=== PATIENT | male | born 1940 | race Caucasian/White ===

== ENCOUNTER → 2017-05-14 | Outpatient (REF) | payer MEDICARE ==
[2017-05-14 14:30] LABS: BASO # 0.1 K/mm3 (0.0-0.2); BASO % 1.6 % (0.0-1.0); EOS # 1.3 K/mm3 (0.0-0.50); EOS % 15.5 % (0.0-3.0); LARGE UNSTAINED CELL # 0.2 K/mm3 (0.0-0.4); LARGE UNSTAINED CELL % 2.2 % (0.0-4.0); LYMPH # 1.3 K/mm3 (1.5-4.5); LYMPH % 13.1 % (24.0-44.0); MEAN CORPUSCULAR HEMOGLOBIN 30.3 pg (27.0-33.0); MEAN CORPUSCULAR HGB CONC 33.1 g/dl (32.0-36.5); MEAN CORPUSCULAR VOLUME 91.7 fl (80.0-96.0); MONO # 0.5 K/mm3 (0.0-0.8); MONO % 5.8 % (0.0-5.0); NEUTROPHILS # 5.3 K/mm3 (1.8-7.7); NEUTROPHILS % 61.8 % (36.0-66.0); PLATELET COUNT, AUTOMATED 293 k/mm3 (150-450); RED CELL DISTRIBUTION WIDTH 12.7 % (11.5-14.5); WHITE BLOOD COUNT 8.6 K/mm3 (4.0-10.0)
[2017-05-14 15:17] LABS: PERCENT SATURATION 30.1 % (19.7-37.4)
== END ==
LOC: M LABDRAW1 12:22
PROVIDERS: ATTEND Orthopaedic Surgery
DX: Z01.818 Encounter for other preprocedural examination (principal); M25.559 Pain in unspecified hip; D64.9 Anemia, unspecified; M16.9 Osteoarthritis of hip, unspecified

== ENCOUNTER → 2018-05-08 | Outpatient (REF) | payer MEDICARE | LOC: M LAB REF 17:13 | DX: J47.9 Bronchiectasis, uncomplicated (principal) ==

== ENCOUNTER → 2018-05-08 | Outpatient (CLI) | payer MEDICARE | LOC: M SMT 14:31 | DX: J47.9 Bronchiectasis, uncomplicated (principal); J98.4 Other disorders of lung | CPT/HCPCS: 87205 ==

== ENCOUNTER → 2018-09-25 | Outpatient (CLI) | payer MEDICARE | LOC: M SMT 10:34 | DX: J47.1 Bronchiectasis with (acute) exacerbation (principal); J84.10 Pulmonary fibrosis, unspecified | CPT/HCPCS: 87186 ==

== ENCOUNTER → 2019-10-13 | Outpatient (REF) | payer MEDICARE | LOC: M LAB REF 16:44 | PROVIDERS: ATTEND Physician Assistant | DX: J44.9 Chronic obstructive pulmonary disease, unspecified (principal); J47.9 Bronchiectasis, uncomplicated ==

== ENCOUNTER → 2021-02-14 | Outpatient (REF) | payer MEDICARE ==
[2021-02-14 14:02] LABS: APPEARANCE, URINE CLEAR (CLEAR); BACTERIA, URINE AUTO NEGATIVE (NEGATIVE); BILIRUBIN, URINE AUTO NEGATIVE (NEGATIVE); BLOOD, URINE BLOOD 1+ (NEGATIVE); COLOR, URINE YELLOW (YELLOW); GLUCOSE, URINE (UA) AUTO NEGATIVE (NEGATIVE); KETONE, URINE AUTO NEGATIVE (NEGATIVE); LEUKOCYTE ESTERASE, URINE AUTO NEGATIVE (NEGATIVE); MUCUS, URINE SMALL (NEGATIVE); NITRITE, URINE AUTO NEGATIVE (NEGATIVE); PROTEIN, URINE AUTO NEGATIVE (NEGATIVE); RBC, URINE AUTO 15 /HPF (0-3); SQUAMOUS EPITHELIAL CELL UR AU 0 /HPF (0-6); UROBILINOGEN, URINE AUTO 0.2 mg/dL (0.0-2.0); WBC, URINE AUTO 3 /HPF (0-3)
== END ==
LOC: M SMT 13:25
PROVIDERS: ATTEND Nurse Practitioner Women's Health
DX: R31.29 Other microscopic hematuria (principal)
CPT/HCPCS: 81001; 87086; G0463

== ENCOUNTER → 2021-04-06 | Outpatient (CLI) | payer MEDICARE ==
[~2021-04-06] MED LIST: ATOR1TAB19; BISO5TAB2; BREO1INH3; FLUT11IN; MUCI600T31 PO; SPIR1CAP; TAMS1CAP17
== END ==
LOC: M LABSMTC 10:02
PROVIDERS: ATTEND Anesthesiology
DX: Z01.812 Encounter for preprocedural laboratory examination (principal); Z20.822 Contact with and (suspected) exposure to COVID-19

== ENCOUNTER 2021-04-11 05:59 | Day surgery (SDC) | payer MEDICARE ==
[~2021-04-11] VITALS: Ht 180.3 cm; Wt 82.3 kg
[2021-04-11] MEDS ORDERED: UNRESOLVED CLARIFICATION ENTRY XX SCH (06:00)
[2021-04-11] MEDS ORDERED: LR 1,000 ML IV ONE (06:00)
[2021-04-11] MEDS ORDERED: CONRAY-60 60% 50ML VIAL (Q9961) As Ordered ONE (06:52)
[2021-04-11] MEDS ORDERED: ALBUTEROL SULFATE 2.5 MG/0.5 ML INH NEB SOLN INH ONE (07:20)
[2021-04-11] MEDS ORDERED: CIPROFLOXACIN 400 MG in IV 1 EA IV ONE (07:20)
[2021-04-11] MEDS ORDERED: dexameTHASONE 4 MG/ML 1ML VIAL (J1100 PER 1MG) As Ordered ONE (07:21)
[2021-04-11] MEDS ORDERED: propofoL 200 MG/20 ML VIAL As Ordered ONE (07:21)
[2021-04-11] MEDS ORDERED: ONDANSETRON 4MG/2ML VIAL As Ordered ONE (07:21)
[2021-04-11] MEDS ORDERED: fentaNYL 100 MCG/2 ML INJECTION (J3010) As Ordered ONE (07:21)
[2021-04-11] MEDS ORDERED: LIDOCAINE 2% 100MG/5ML SDV (FOR ANES.) As Ordered ONE (07:21)
[2021-04-11] MEDS ORDERED: ROCURONIUM BROMIDE 50 MG/5 ML VIAL As Ordered ONE (07:37)
[2021-04-11] MEDS ORDERED: ePHEDrine SULFATE 25 MG/5 ML(5MG/ML) SYRINGE As Ordered ONE (07:52)
[2021-04-11] MEDS ORDERED: PHENYLephrine 500MCG 5ML (100MCG/ML) SYRINGE As Ordered ONE (07:59)
[2021-04-11] MEDS ORDERED: ACETAMINOPHEN 1000MG 100ML IV BTL (OFIRMEV) (J0131 PER 10MG) As Ordered ONE (08:19)
[2021-04-11] MEDS ORDERED: SUGAMMADEX SODIUM 500 MG/5 ML VIAL (BRIDION) As Ordered ONE (08:20)
--- NOTE | 2021-04-11 09:10 | ROOPDOC ---
[facility] Report Of Operation Report of Operation DATE OF PROCEDURE: 04/11/21 PREPROCEDURE DIAGNOSES: Left renal calculus POSTPROCEDURE DIAGNOSES: Left renal calculus with ureteral strictures PROCEDURE: Cystoscopy, left retrograde pyelogram, ureteral dilation, ureteroscopy, stent insertion, x-ray interpretation and fluoroscopy SURGEON: Denis Vargas MD [employer]ER OPERATIONS INSPECTOR: None ANESTHESIA: Gen. ESTIMATED BLOOD LOSS: Approximately less than 10 mL. COMPLICATIONS: None REMARKS: Patient was brought to the operating for treatment of an 8 mm renal pelvic stone that causes periodic back pain. 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 Timeout was performed. A #22 Thai cystoscope was inserted into the meatus and advanced under direct vision of a 30 lens to the bladder. The prostate was mildly obstructive with increased vascularity from prior radiation therapy. The bladder also had radiation changes. Both ureteral orifices were identified and were contracted from radiation changes. There were no other mucosal abnormalities. A Pollack catheter was attempted to be inserted into the orifice for a retrograde pyelogram but because of the narrowness of the channel could not be performed. A wire guide was then passed through the catheter and with some manip ulation was able to be inserted into the ureteral orifice followed by the catheter. The wire was then removed and a retrograde pyelogram was performed. This showed the patient had a renal pelvic defect and a very narrow ureter up to the renal pelvis. The wire guide was then passed through the catheter up to the renal pelvis and left in place as the catheter was removed. The Pollack catheter was then used to insert a second working wire. A tunnel dilator was attempted to be passed without success because of the narrow channel. A balloon dilator was then used to dilate the distal ureter and ureteral orifice to 15 giselle pressure for 3 minutes. The balloon was then deflated and a tunnel dilator was able to be inserted only into the distal ureter. The flexible cystoscope was then passed over the working wire. The ureteral channel was very narrow and it was extremely difficult to advance the scope. The decision was therefore made to insert a ureteral stent to gently dilate the ureter and return in 2 weeks for ureteroscopic laser lithotripsy. A cystoscope was then backloaded over the safety wire and an 8 Thai double-J stent was passed. It curled well in the renal pelvis and in the bladder when the wire was removed. The bladder was then drained, cystoscope was removed and the patient was awakened and sent to recovery area in stable condition having tolerated the procedure well. A digital rectal exam showed a flat benign prostate. Fluoroscopy was used throughout the case and interpreted throughout the case to pass the instruments and dilate the ureter. EDNIS VARGAS MD April 11, 2021 09:10
[2021-04-11] MEDS ORDERED: ONDANSETRON 4MG/2ML VIAL IV PRN (09:25)
[2021-04-11] MEDS ORDERED: fentaNYL 100 MCG/2 ML INJECTION (J3010) IV PRN (09:25)
[2021-04-11] MEDS ORDERED: NORCO, ANEXSIA 5/325MG TABLET (HYDROcodone/ACETAMINOPHEN) PO PRN (09:25)
[2021-04-11] MEDS ORDERED: LR 1,000 ML IV SCH (09:25)
--- NOTE | 2021-04-11 09:26 | REP ---
INDICATION: POSSIBLE LEFT STENT PLACEMENT. COMPARISON: None. TECHNIQUE: Single C-arm view abdomen. FINDINGS: Only the proximal aspect of a left ureteral stent is visualized within the proximal left ureter. The left pelvocaliceal system is partially opacified with contrast. The proximal end of the ureteral stent is within the left renal pelvis. IMPRESSION: 45 seconds fluoroscopy time utilized. <Electronically signed by Jerome Ku > 04/11/21 [id number]
[2021-04-11] MEDS ORDERED: IBUPROFEN 600MG TAB PO PRN (09:35)
[2021-04-11 10:30] VITALS: BP 118/54
== END 2021-04-11 10:40 | disposition home or self-care (01) ==
LOC: M SDC 05:59
PROVIDERS: ATTEND Urology
DX: N20.0 Calculus of kidney (principal); N13.2 Hydronephrosis with renal and ureteral calculous obstruction; I10 Essential (primary) hypertension; J44.9 Chronic obstructive pulmonary disease, unspecified; Z79.899 Other long term (current) drug therapy; Z88.0 Allergy status to penicillin; Z92.3 Personal history of irradiation; Z85.118 Personal history of other malignant neoplasm of bronchus and lung; Z85.46 Personal history of malignant neoplasm of prostate; Z99.81 Dependence on supplemental oxygen
CPT/HCPCS: 52332; 52341; 76000; C1769; C1894; C2617; J0131; J0744; J1100; J2370; J2405; J3010; Q9961

== ENCOUNTER → 2021-05-18 | Outpatient (CLI) | payer MEDICARE ==
[~2021-05-18] MED LIST changes: +ECOT81TA5 PO; +VITA200030 PO; +VITMTA PO
== END ==
LOC: M LABSMTC 11:07
PROVIDERS: ATTEND Anesthesiology
DX: Z01.812 Encounter for preprocedural laboratory examination (principal); Z20.822 Contact with and (suspected) exposure to COVID-19

== ENCOUNTER 2021-05-23 10:41 | Day surgery (SDC) | payer MEDICARE ==
[~2021-05-23] VITALS: Ht 177.8 cm; Wt 90.2 kg
[~2021-05-23 10:41] MED LIST changes: +CONRAY-60 60% 50ML VIAL (Q9961) As Ordered ONE; +LR 1,000 ML IV ONE; +LevoFLOXacin IV 500 MG in IV 1 EA IV ONE
[2021-05-23] MEDS ORDERED: propofoL 200 MG/20 ML VIAL As Ordered ONE (10:52)
[2021-05-23] MEDS ORDERED: LIDOCAINE 2% 100MG/5ML SDV (FOR ANES.) As Ordered ONE (10:52)
[2021-05-23] MEDS ORDERED: fentaNYL 100 MCG/2 ML INJECTION (J3010) As Ordered ONE (10:52)
[2021-05-23] MEDS ORDERED: IPRA0.00 IN (11:37)
[2021-05-23] MEDS ORDERED: ONDANSETRON 4MG/2ML VIAL As Ordered ONE (11:50)
[2021-05-23] MEDS ORDERED: PHENYLephrine 500MCG 5ML (100MCG/ML) SYRINGE As Ordered ONE (11:50)
[2021-05-23] MEDS ORDERED: ePHEDrine SULFATE 25 MG/5 ML(5MG/ML) SYRINGE As Ordered ONE (11:50)
[2021-05-23] MEDS ORDERED: dexameTHASONE 4 MG/ML 1ML VIAL (J1100 PER 1MG) As Ordered ONE (11:50)
--- NOTE | 2021-05-23 12:48 | REP ---
INDICATION: CYSTO, LEFT URET, W/ LASER, LEFT STENT. COMPARISON: None. TECHNIQUE: Intraoperative fluoroscopic imaging. FINDINGS: Images demonstrate the patient to be status post left ureteral stent placement. Total fluoroscopic time 1 minutes 21 seconds. IMPRESSION: Status post left ureteral stent placement. <Electronically signed by Sigifredo Barron > 05/23/21 [id number]
[2021-05-23] MEDS ORDERED: CIPR500T39 PO (12:56)
[2021-05-23] MEDS ORDERED: OXYB5TAB10 PO (12:56)
[2021-05-23] MEDS ORDERED: PYRI1TAB5 PO (12:56)
[2021-05-23] MEDS ORDERED: HYDR-3713 PO (12:56)
[2021-05-23] MEDS ORDERED: LR 1,000 ML IV SCH (13:05)
[2021-05-23] MEDS ORDERED: MEPERIDINE INJ 25 MG/ML VIAL (J2175) IV PRN (13:05)
[2021-05-23] MEDS ORDERED: fentaNYL 100 MCG/2 ML INJECTION (J3010) IV PRN (13:05)
[2021-05-23] MEDS ORDERED: oxyCODONE 5MG TAB PO PRN (13:05)
[2021-05-23] MEDS ORDERED: ONDANSETRON 4MG/2ML VIAL IV PRN (13:05)
[2021-05-23] MEDS ORDERED: METOCLOPRAMIDE INJ 10MG/2ML VIAL (J2765 PER 1) IV PRN (13:05)
[2021-05-23 14:15] VITALS: BP 133/59
--- NOTE | 2021-05-24 11:17 | ROOPDOC ---
[facility] Report Of Operation Report of Operation DATE OF PROCEDURE: 05/24/21 PREPROCEDURE DIAGNOSES: [Left renal stone, left ureteral strictures]. POSTPROCEDURE DIAGNOSES: [Same]. PROCEDURE PERFORMED: Cystoscopy, fluoroscopy, retrograde pyelography, balloon dilatation of ureteral strictures, rigid and flexible ureteroscopy, laser lithotripsy, ureteral stent removal/replacement (LEFT SIDE)]. SURGEON: [Marquis Soliz]MD RUCHING MACHINE OPERATOR: [Urology staff], ANESTHESIA: [General]. ESTIMATED BLOOD LOSS: Approximately [2] mL. COMPLICATIONS: [None]. REMARKS: [81-year-old white male. Left renal pelvis stone. Intermittent pain. Initial attempt to deal with the stone was unsuccessful because of ureteral strictures. Urologist was unable to get the ureteroscope into the renal pelvis. Ultimately a stent was placed. The hope was that the ureter would dilate passively. A second surgery was arranged. Informed consent was obtained. Risks were discussed such as infection, bleeding, pain, scarring, injury to the urinary tract, failure of surgery, risks of anesthesia and others.]. FINDINGS: [Several left ureteral strictures, large left renal pelvis stone] SPECIMENS REMOVED: [Old left stent] PROCEDURE NOTE: . DESCRIPTION OF PROCEDURE: [I met with the patient in the preop area before surgery. Informed consent was obtained. Questions were answered. No guarantees were given. Patient was brought to the OR. Surgery was done under antimicrobial coverage. General anesthesia was secured without difficulty. Dorsal lithotomy position. Well padded. Prepping and draping in the usual sterile fashion. A timeout was performed. Rigid cystoscopy was performed. The stent on the left was identified and pulled to the external urethral meatus with a rigid grasper after which a wire was passed through it up into the kidney as seen using fluoroscopy. The stent was removed. With the wire as a safety wire rigid ureteroscopy was performed. I was unable to advance the ureteroscope more than probably a third of the ureter. The ureter was narrow in general and ultimately I met with a stricture. Contrast was injected through the ureteroscope to obtain a retrograde pyelogram. Several ureteral strictures were noted. A 4 cm long balloon was used to dilate the strictures. Such was done over a wire under fluoroscopy. The balloon was inflated several times. After this a second wire was advanced up the ureter into the kidney asa seen using fluoroscopy. I was then able to advance a flexible ureteroscope into the kidney. The renal pelvis and calyces were inspected. The stone in question was found. It was larger than a centimeter. Laser lithotripsy was performed. I took a while to fragment the stone. It was fragmented into many pieces. Once no large fragments were noted I placed a 6 [place] multilength stent using the Seldinger technique. Proper positioning was confirmed. The bladder was emptied and the cystoscope was removed. Patient tolerated everything well and left the room in satisfactory condition. Home on antibiotic, oxybutynin, Pyridium and pain medication. Will undergo imaging to determine success of the surgery. Hopefully no large fragments remain. Ultimately will undergo cystoscopy with stent removal.]. MARQUIS SOLIZ MD May 24, 2021 11:17
== END 2021-05-23 14:15 | disposition home or self-care (01) ==
LOC: M SDC 10:41
PROVIDERS: ATTEND Urology
DX: N20.1 Calculus of ureter (principal); N13.5 Crossing vessel and stricture of ureter without hydronephrosis; I10 Essential (primary) hypertension; J44.9 Chronic obstructive pulmonary disease, unspecified; Z99.81 Dependence on supplemental oxygen; Z92.3 Personal history of irradiation; Z85.118 Personal history of other malignant neoplasm of bronchus and lung; Z85.46 Personal history of malignant neoplasm of prostate; Z79.82 Long term (current) use of aspirin; Z79.899 Other long term (current) drug therapy; Z88.0 Allergy status to penicillin
CPT/HCPCS: 52341; 52356; 74420; C1769; C2617; J1100; J1956; J2370; J2405; J2765; J3010; Q9961

== ENCOUNTER → 2022-02-13 | Outpatient (CLI) | payer MEDICARE ==
[~2022-02-13] MED LIST changes: +BISO1TAB18; -BISO5TAB2; +CIPR500T39 PO; -CONRAY-60 60% 50ML VIAL (Q9961) As Ordered ONE; +HYDR-3713 PO; +IPRA0.00 IN; +ISOVUE-370 76% 100ML VIAL ONE; -LR 1,000 ML IV ONE; -LevoFLOXacin IV 500 MG in IV 1 EA IV ONE; +OXYB5TAB10 PO; +PYRI1TAB5 PO
== END ==
LOC: M PLAIMG 10:55
PROVIDERS: ATTEND Urology
DX: N28.89 Other specified disorders of kidney and ureter (principal); K76.89 Other specified diseases of liver; N20.0 Calculus of kidney; N28.1 Cyst of kidney, acquired
CPT/HCPCS: 74170; Q9967

== ENCOUNTER → 2022-02-27 | Outpatient (CLI) | payer MEDICARE ==
[~2022-02-27] MED LIST changes: -ISOVUE-370 76% 100ML VIAL ONE; +LIDOCAINE 1% MDV 20ML VIAL As Ordered ONE
[2022-02-27 16:45] VITALS: BP 137/64
== END ==
LOC: M IRPRO 12:45
PROVIDERS: ATTEND Urology
DX: N28.89 Other specified disorders of kidney and ureter (principal)

== ENCOUNTER → 2022-04-19 | Outpatient (REF) | payer MEDICARE ==
[~2022-04-19] MED LIST changes: -LIDOCAINE 1% MDV 20ML VIAL As Ordered ONE
== END ==
LOC: M LAB REF 13:04
PROVIDERS: ATTEND Internal Medicine Pulmonary Disease
DX: J47.1 Bronchiectasis with (acute) exacerbation (principal)

== ENCOUNTER → 2022-06-12 | Outpatient (CLI) | payer MEDICARE ==
[~2022-06-12] MED LIST changes: +ISOVUE-370 76% 100ML VIAL As Ordered ONE
== END ==
LOC: M RAD 10:53
PROVIDERS: ATTEND Urology
DX: R91.8 Other nonspecific abnormal finding of lung field (principal); N28.1 Cyst of kidney, acquired; K76.89 Other specified diseases of liver
CPT/HCPCS: 74170; Q9967

== ENCOUNTER → 2022-08-08 | Outpatient (CLI) | payer MEDICARE ==
[~2022-08-08] MED LIST changes: -ISOVUE-370 76% 100ML VIAL As Ordered ONE
== END ==
LOC: M PLAIMG 09:31
PROVIDERS: ATTEND Internal Medicine Pulmonary Disease
DX: R91.8 Other nonspecific abnormal finding of lung field (principal); Z85.118 Personal history of other malignant neoplasm of bronchus and lung; Z90.2 Acquired absence of lung [part of]; N20.0 Calculus of kidney; N28.1 Cyst of kidney, acquired; Z85.46 Personal history of malignant neoplasm of prostate; K82.8 Other specified diseases of gallbladder

== ENCOUNTER 2022-11-22 11:28 | Inpatient (IN) | payer MEDICARE ==
[~2022-11-22] VITALS: Ht 175.3 cm; Wt 86.4 kg
[2022-11-22 13:15] LABS: BASO # 0.1 10^3/uL (0.0-0.2); EOS # 0.6 10^3/uL (0.0-0.5); EOS % 4.3 % (0.0-3.0); HEMATOCRIT 45.3 % (42.0-52.0); HEMOGLOBIN 13.7 g/dl (13.5-17.5); LYMPH # 1.1 10^3/uL (1.5-5.0); LYMPH % 7.4 % (24.0-44.0); MEAN CORPUSCULAR HEMOGLOBIN 28.2 pg (27.0-33.0); MEAN CORPUSCULAR HGB CONC 30.2 g/dl (32.0-36.5); MEAN CORPUSCULAR VOLUME 93.4 fl (80.0-96.0); MONO # 1.1 10^3/uL (0.0-0.8); MONO % 7.8 % (2.0-8.0); NEUTROPHILS # 11.5 10^3/uL (1.5-8.5); PLATELET COUNT, AUTOMATED 357 10^3/uL (150-450); RED BLOOD COUNT 4.85 10^6/uL (4.30-6.10); WHITE BLOOD COUNT 14.6 10^3/uL (4.0-10.0)
[2022-11-22] MEDS ORDERED: ISOVUE-370 76% 100ML VIAL As Ordered ONE (13:28)
[2022-11-22] MEDS ORDERED: MAALOX 30 ML SUSP *UDC PO PRN (15:15)
[2022-11-22] MEDS ORDERED: IPRATROPIUM 0.5MG/ALBUTEROL 2.5MG INH SOL UD 3ML (DUONEB) NEB PRN (15:15)
[2022-11-22] MEDS ORDERED: ACETAMINOPHEN TAB 650MG DOSE (2X325MG) PO PRN (15:15)
[2022-11-22] MEDS ORDERED: MOM 30ML SUSPENSION UDC PO PRN (15:15)
[2022-11-22] MEDS ORDERED: TIOT18INH INH (15:18)
[2022-11-22] MEDS ORDERED: BISO1TAB18 PO (15:18)
[2022-11-22] MEDS ORDERED: ATOR1TAB19 PO (15:18)
[2022-11-22] MEDS ORDERED: BREO1INH3 INH (15:20)
[2022-11-22] MEDS ORDERED: VITA200012 PO (15:20)
[2022-11-22] MEDS ORDERED: ALBU2.5V10 INH (15:21)
[2022-11-22] MEDS ORDERED: MUCI600T31 PO (15:22)
[2022-11-22] MEDS ORDERED: FLUT11IN INH (15:23)
[2022-11-22] MEDS ORDERED: THERTAB68 PO (15:31)
[2022-11-22] MEDS ORDERED: HOME MED LIST COMPLETE! XX SCH (15:35)
[2022-11-22] MEDS ORDERED: LevoFLOXacin 750 MG TABLET PO SCH (18:00)
[2022-11-22] MEDS: methylPREDNISolone 40MG 1ML VIAL IV SCH (18:24)
[2022-11-22] MEDS: guaiFENesin ER 600 MG TAB PO SCH ×2 (18:27→20:14)
[2022-11-22] MEDS: DOCUSATE SODIUM 100MG CAPSULE PO SCH (20:14)
[2022-11-22] MEDS: ADVAIR HFA 230/21MCG INHALER INH SCH (20:17)
[2022-11-22] MEDS: IPRATROPIUM 0.5MG/ALBUTEROL 2.5MG INH SOL UD 3ML (DUONEB) NEB SCH (20:17)
[2022-11-23] MEDS: IPRATROPIUM 0.5MG/ALBUTEROL 2.5MG INH SOL UD 3ML (DUONEB) NEB SCH ×2 (02:59→08:00)
[2022-11-23] MEDS: methylPREDNISolone 40MG 1ML VIAL IV SCH (05:30)
[2022-11-23 06:39] LABS: BASO % 0.2 % (0.0-1.0); HEMATOCRIT 40.2 % (42.0-52.0); HEMOGLOBIN 12.4 g/dl (13.5-17.5); LYMPH # 0.6 10^3/uL (1.5-5.0); LYMPH % 6.2 % (24.0-44.0); MEAN CORPUSCULAR HEMOGLOBIN 28.5 pg (27.0-33.0); MEAN CORPUSCULAR HGB CONC 30.8 g/dl (32.0-36.5); MEAN CORPUSCULAR VOLUME 92.4 fl (80.0-96.0); MONO # 0.5 10^3/uL (0.0-0.8); MONO % 5.3 % (2.0-8.0); NEUTROPHILS # 8.4 10^3/uL (1.5-8.5); NEUTROPHILS % 87.8 % (36.0-66.0); PLATELET COUNT, AUTOMATED 303 10^3/uL (150-450); RED BLOOD COUNT 4.35 10^6/uL (4.30-6.10); WHITE BLOOD COUNT 9.6 10^3/uL (4.0-10.0)
[2022-11-23 07:15] LABS: ALBUMIN 3.1 G/DL (3.2-5.2); ALKALINE PHOSPHATASE 95 U/L (46-116); ALT/SGPT 12 U/L (7.0-40); AST/SGOT 11 U/L (<34); BILIRUBIN,TOTAL 0.4 MG/DL (0.3-1.2); BLOOD UREA NITROGEN 33 MG/DL (9-23); CALCIUM LEVEL 9.4 MG/DL (8.3-10.6); CARBON DIOXIDE LEVEL 36 MMOL/L (20-31); CHLORIDE LEVEL 95 MMOL/L (98-107); CREATININE FOR GFR 0.86 MG/DL (0.70-1.30); GLOMERULAR FILTRATION RATE > 60.0 (>35); GLUCOSE, FASTING 119 MG/DL (74-106); POTASSIUM SERUM 4.9 MMOL/L (3.5-5.1); SODIUM LEVEL 137 MMOL/L (136-145)
[2022-11-23] MEDS ORDERED: TIOTROPIUM INHALER/CAPSULE (SPIRIVA) INH SCH (08:00)
[2022-11-23] MEDS ORDERED: FLUTICASONE HFA 110MCG 12GM INHALER (FLOVENT) INH SCH (08:00)
[2022-11-23] MEDS: ADVAIR HFA 230/21MCG INHALER INH SCH (08:07)
[2022-11-23] MEDS: DOCUSATE SODIUM 100MG CAPSULE PO SCH (08:26)
[2022-11-23] MEDS: guaiFENesin ER 600 MG TAB PO SCH (08:26)
[2022-11-23 08:28] VITALS: BP 104/71
[2022-11-23] MEDS ORDERED: ATORVASTATIN 10 MG TAB PO SCH (09:00)
[2022-11-23] MEDS ORDERED: VITAMIN D 1,000 INTERNATIONAL UNITS TABLET PO SCH (09:00)
[2022-11-23] MEDS ORDERED: ENOXAPARIN 40MG/0.4ML SYRINGE (J1650 PER 10MG) SC SCH (09:00)
[2022-11-23] MEDS ORDERED: bisoproloL fumarate 5 MG TAB PO SCH (09:00)
[2022-11-23 09:47] VITALS: BP 136/77
[2022-11-23 10:00] VITALS: O2SAT 98
[2022-11-23] MEDS ORDERED: PRED10TA2 PO (11:10)
[2022-11-23] MEDS ORDERED: LEVO1TAB40 PO (11:10)
== END 2022-11-23 13:14 | disposition home health service (06) | DRG 191 ==
LOC: M ED 11:28 → M ED INP 15:12 → ENRESERV 11-23 08:07 → M MSPAV 11-23 09:58
PROVIDERS: ADMIT Internal Medicine; ATTEND Internal Medicine
DX: J47.9 Bronchiectasis, uncomplicated (principal); J96.11 Chronic respiratory failure with hypoxia; I10 Essential (primary) hypertension; E78.5 Hyperlipidemia, unspecified; K59.00 Constipation, unspecified; B97.4 Respiratory syncytial virus as the cause of diseases classified elsewhere; Z66 Do not resuscitate; Z85.46 Personal history of malignant neoplasm of prostate; Z85.118 Personal history of other malignant neoplasm of bronchus and lung; Z90.2 Acquired absence of lung [part of]; Z92.3 Personal history of irradiation; Z99.81 Dependence on supplemental oxygen; Z85.828 Personal history of other malignant neoplasm of skin; Z87.891 Personal history of nicotine dependence; Z79.899 Other long term (current) drug therapy; Z88.0 Allergy status to penicillin; Z79.2 Long term (current) use of antibiotics

== ENCOUNTER → 2023-05-31 | Outpatient (REF) | payer MEDICARE ==
[~2023-05-31] MED LIST changes: +ALBU2.5V10 INH; +ATOR1TAB19 PO; +BISO1TAB18 PO; +BREO1INH3 INH; -FLUT11IN; +FLUT12AE6; +FLUT12AE6 INH; +LEVO1TAB40 PO; +PRED10TA2 PO; +THERTAB68 PO; +TIOT18INH INH; +VITA200012 PO
== END ==
LOC: M LAB REF 12:51
PROVIDERS: ATTEND Internal Medicine Pulmonary Disease
DX: J47.9 Bronchiectasis, uncomplicated (principal)

== ENCOUNTER → 2023-12-03 | Outpatient (REF) | payer MEDICARE ==
[~2023-12-03] MED LIST changes: -OXYB5TAB10 PO; +OXYB5TAB11 PO
== END ==
LOC: M LAB REF 13:08
PROVIDERS: ATTEND Internal Medicine Pulmonary Disease
DX: J47.9 Bronchiectasis, uncomplicated (principal)

== ENCOUNTER → 2024-03-10 | Outpatient (CLI) | payer MEDICARE ==
[~2024-03-10] MED LIST changes: -OXYB5TAB11 PO; +OXYB5TAB14 PO
== END ==
LOC: M PLARAD 10:31
PROVIDERS: ATTEND Radiology Radiation Oncology
DX: C34.31 Malignant neoplasm of lower lobe, right bronchus or lung (principal); N28.1 Cyst of kidney, acquired; R59.0 Localized enlarged lymph nodes; R91.8 Other nonspecific abnormal finding of lung field; N42.89 Other specified disorders of prostate
CPT/HCPCS: 78815; A9552